=== PATIENT | female | born 1955 | race Caucasian/White ===

== ENCOUNTER 2016-09-29 15:55 | Emergency (ER) | payer OTHER | END 2016-09-29 18:50 | disposition home or self-care (01) | LOC: ER1 15:55 | DX: S42.212A Unspecified displaced fracture of surgical neck of left humerus, initial encounter for closed fracture (principal); I10 Essential (primary) hypertension; F17.210 Nicotine dependence, cigarettes, uncomplicated; W01.0XXA Fall on same level from slipping, tripping and stumbling without subsequent striking against object, initial encounter; Y92.009 Unspecified place in unspecified non-institutional (private) residence as the place of occurrence of the external cause | CPT/HCPCS: 73030; 73060; 73080; 73200; 99283 ==

== ENCOUNTER 2016-10-03 10:02 | Day surgery (SDC) | payer OTHER ==
[~2016-10-03] VITALS: Ht 162.6 cm; Wt 60.8 kg
[2016-10-03 10:35] LABS: HEMOGLOBIN 12.4 gm/dl (12.3-15.3); RED BLOOD COUNT 3.84 M/UL (4.00-5.10); WHITE BLOOD COUNT 13.5 K/UL (4.5-11.0)
[2016-10-03 11:06] LABS: BUN/CREATININE RATIO 24 (0-10)
[2016-10-03] MEDS ORDERED: NEURONTIN 100100 MG PO (12:41)
[2016-10-03] MEDS ORDERED: ALENDRONATE SOD70 MG PO (12:42)
[2016-10-03] MEDS ORDERED: AMITRIPTYLINE H50 MG PO (12:43)
[2016-10-03] MEDS ORDERED: BUSPIRONE HCL5 MG PO (12:43)
[2016-10-03] MEDS ORDERED: DULOXETINE HCL60 MG PO (12:44)
[2016-10-03] MEDS ORDERED: MONTELUKAST SOD10 MG PO (12:44)
[2016-10-03] MEDS ORDERED: VERAPAMIL ER P100 MG PO (12:45)
[2016-10-03] MEDS ORDERED: TOPAMAX100 MG PO (12:45)
[2016-10-04 06:18] LABS: RED BLOOD COUNT 3.1 M/UL (4.00-5.10); WHITE BLOOD COUNT 19.1 K/UL (4.5-11.0)
[2016-10-04 06:19] LABS: HEMOGLOBIN 10.2 gm/dl (12.3-15.3)
[2016-10-04 06:26] LABS: BUN/CREATININE RATIO 23 (0-10)
== END 2016-10-04 18:40 | disposition home or self-care (01) ==
LOC: M/S 10:02 → OR 10:02 → M/S 19:54 → OR 10-04 18:40
PROVIDERS: Orthopaedic Surgery
PROC: 0PSD04Z Reposition Left Humeral Head with Internal Fixation Device, Open Approach (ICD-10-PCS; principal; 2016-10-03 15:15)
DX: S42.232A 3-part fracture of surgical neck of left humerus, initial encounter for closed fracture (principal); M81.0 Age-related osteoporosis without current pathological fracture; M19.90 Unspecified osteoarthritis, unspecified site; I10 Essential (primary) hypertension; G43.909 Migraine, unspecified, not intractable, without status migrainosus; F17.210 Nicotine dependence, cigarettes, uncomplicated; Z79.899 Other long term (current) drug therapy; Z90.49 Acquired absence of other specified parts of digestive tract; Z90.89 Acquired absence of other organs; Z86.718 Personal history of other venous thrombosis and embolism; Z96.643 Presence of artificial hip joint, bilateral; W01.0XXA Fall on same level from slipping, tripping and stumbling without subsequent striking against object, initial encounter
CPT/HCPCS: 36415; 73030; 76000; 80048; 82652; 85025; 93005; 97535; C1713; J0690; J1100; J1885; J2250; J2270; J2370; J2405; J2710; J2795; J3010; J7030; J7050; J7120

== ENCOUNTER → 2016-11-22 | Outpatient (CLI) | payer OTHER ==
[~2016-11-22] MED LIST: ALENDRONATE SOD70 MG PO; AMITRIPTYLINE H50 MG PO; BUSPIRONE HCL5 MG PO; DULOXETINE HCL60 MG PO; MONTELUKAST SOD10 MG PO; NEURONTIN 100100 MG PO; TOPAMAX100 MG PO; VERAPAMIL ER P100 MG PO
== END ==
LOC: KOH-I 10:42
DX: M81.0 Age-related osteoporosis without current pathological fracture (principal); M85.88 Other specified disorders of bone density and structure, other site
CPT/HCPCS: 77080

== ENCOUNTER 2022-01-06 15:13 | Emergency (ER) | payer MEDICARE ==
[2022-01-06] MEDS ORDERED: HYDROCODON-ACE1 EAC4 PO ×2 (18:35→18:41)
== END 2022-01-06 19:09 | disposition home or self-care (01) ==
LOC: ER1 15:13
DX: S32.592A Other specified fracture of left pubis, initial encounter for closed fracture (principal); I10 Essential (primary) hypertension; F17.210 Nicotine dependence, cigarettes, uncomplicated; Z96.643 Presence of artificial hip joint, bilateral; W19.XXXA Unspecified fall, initial encounter; Y92.009 Unspecified place in unspecified non-institutional (private) residence as the place of occurrence of the external cause
CPT/HCPCS: 72170; 73552; 73590; 73610; 99283